=== PATIENT | female | born 1940 | race Caucasian/White ===

== ENCOUNTER → 2016-11-21 | Outpatient (CLI) | payer MEDICARE, OTHER ==
--- NOTE | 2016-11-21 15:14 | RADRPT ---
PROCEDURE: XR Femur. CLINICAL INDICATION: Left leg pain. TECHNIQUE: AP and lateral views of the left femur were performed. COMPARISON: None. FINDINGS: There is a terrance in the shaft of the femur with a screw in the neck of the femur and a locking screw d istally in the femur. Alignment of the healing fracture of the left hip intertrochanteric region is satisfactory. There is no new fracture and there is no dislocation. The soft tissues are normal. Articular surfaces are intact. There is no lytic or blastic lesion. IMPRESSION: 1. Satisfactory postoperative appearance of the left hip and femur. RPTAT: QQ .Greg Yusuf MD, MD Date Time Electronically viewed and signed by .Greg Yusuf MD, on 11/21/2016 15:13 .R/
--- NOTE | 2016-11-21 15:15 | RADRPT ---
PROCEDURE: XR Left hip and pelvis. CLINICAL INDICATION: Left hip pain and pelvic pain... TECHNIQUE: 3 views. Frontal pelvis. Frontal and lateral left hip. COMPARISON: None. FINDINGS: There is a terrance in the shaft of the left femur with a screw in the neck of the left femur and a locki ng screw distally in the left femur. Alignment of the healing fracture of the left hip intertrochan teric region is satisfactory. There is no new fracture and there is no dislocation. The right hip d emonstrates mild degenerative change with small osteophytes noted. There are degenerative changes o f the lower lumbar spine. The articular surfaces are otherwise intact. There is no lytic or blastic lesion. IMPRESSION: 1. Satisfactory postoperative appearance of the left hip. 2. Mild degenerative changes of the right hip. RPTAT: QQ .Greg Yusuf MD, MD Date Time Electronically viewed and signed by .Greg Yusuf MD, on 11/21/2016 15:14 .R/
== END | disposition home or self-care (01) ==
LOC: HKI 14:04
PROVIDERS: ATTEND Orthopaedic Surgery
DX: S72.142D Displaced intertrochanteric fracture of left femur, subsequent encounter for closed fracture with routine healing (principal)
CPT/HCPCS: 73502; 73552; G0463

== ENCOUNTER → 2016-12-16 | Outpatient (CLI) | payer MEDICARE, OTHER ==
--- NOTE | 2016-12-16 19:05 | RADRPT ---
PROCEDURE: CT left femur without IV contrast. CLINICAL INDICATION: Left hip pain TECHNIQUE: CT scan of the left femur without contrast was performed on the [employer] volumetric [address] scanner. The patient was scanned without intravenous contrast. Coronal and sagittal reformatted images were obtained from the axial source images. The CTDI vol is 23.97 mGy and the DLP is 798.47 m Gy-cm. COMPARISON: Plain films from 11/21/2016 FINDINGS: Diffuse osteopenia is seen. An intertrochanteric left hip fracture is seen. Lucency at the fractur e site is seen with sclerotic margins. An intramedullary terrance in the left femur is seen with interloc sally screw in the left hip. The orthopedic hardware appears grossly radiographically intact. No ot her fracture is seen. No dislocation is seen. Moderate joint space narrowing and osteophytosis in the left hip is seen. Degenerative changes in the pubic symphysis is seen. Mild edema in the left lateral soft tissues is seen within the subcutaneous region. No focal fluid collection or hematoma is identified. The visualized small and large bowel are grossly unremarkable. The visualized uterus and urinary bl adder is within normal limits. IMPRESSION: 1. Status post intramedullary terrance placement for an intertrochanteric left hip fracture which demons trates lucency at the fracture site with sclerotic margins which may represent a healing fracture. Correlation to the date of the fracture is recommended as well as a follow-up as clinically warrante d. 2. Moderate osteoarthritis in the left hip. RPTAT: HPNM Physician Reta Date Time Electronically viewed and signed by Physician Reta on 12/16/2016 19:04 /
== END | disposition home or self-care (01) ==
LOC: C/S 11:18
PROVIDERS: ATTEND Orthopaedic Surgery
DX: M25.552 Pain in left hip (principal); M16.12 Unilateral primary osteoarthritis, left hip
CPT/HCPCS: 73700

== ENCOUNTER → 2017-01-06 | Outpatient (CLI) | payer MEDICARE, OTHER ==
[~2017-01-06] MED LIST: LIDOCAINE 1% (STERILE-PAK) 30 ML INJ ONE; POLYMYXIN/BACITRACIN 1L IRRIG ONE; ROPIVACAINE 0.5 % 30 ML VIAL ONE
== END | disposition home or self-care (01) ==
LOC: HKI 13:52
PROVIDERS: ATTEND Orthopaedic Surgery
DX: S72.142D Displaced intertrochanteric fracture of left femur, subsequent encounter for closed fracture with routine healing (principal); X58.XXXD Exposure to other specified factors, subsequent encounter
CPT/HCPCS: G0463; J2795

== ENCOUNTER → 2017-02-03 | Outpatient (CLI) | payer MEDICARE, OTHER ==
--- NOTE | 2017-02-03 14:32 | RADRPT ---
PROCEDURE: XR Femur. CLINICAL INDICATION: Left leg pain. TECHNIQUE: AP and lateral views of the left femur were performed. COMPARISON: 11/21/2016. FINDINGS: There is a terrance in the shaft of the femur and a screw in the neck of the femur. A locking screw is p resent distally in the femur. There is satisfactory alignment of the healing fracture of the intert rochanteric region of the left hip. There is no new fracture and there is no dislocation. Articular surfaces are intact. There are mild degenerative changes of the left hip with osteophytes noted. There is no lytic or blastic lesion. IMPRESSION: 1. Satisfactory postoperative appearance of the left hip and femur. RPTAT: QQ .Greg Yusuf MD, MD Date Time Electronically viewed and signed by .Greg Yusuf MD, on 02/03/2017 14:32 .R/
--- NOTE | 2017-02-03 14:33 | RADRPT ---
PROCEDURE: XR Left Hip and pelvis. CLINICAL INDICATION: Left hip pain. Pelvic pain. TECHNIQUE: Two views. Frontal pelvis and lateral left hip. COMPARISON: 11/21/2016. FINDINGS: There is a terrance in the shaft of the femur and a screw in the neck of the femur. There is satisfact ory alignment of the healing fracture of the intertrochanteric region of the left hip. There is no new fracture and there is no dislocation. Articular surfaces are intact. There are mild degenerative changes of both hips with osteophytes not ed. There is no lytic or blastic lesion. IMPRESSION: 1. Satisfactory postoperative appearance of the left hip. 2. Mild degenerative changes of both hips. RPTAT: QQ .Greg Yusuf MD, MD Date Time Electronically viewed and signed by .Greg Yusuf MD, MD on 02/03/2017 14:33 .R/
== END | disposition home or self-care (01) ==
LOC: HKI 13:28
PROVIDERS: ATTEND Orthopaedic Surgery
DX: S72.142D Displaced intertrochanteric fracture of left femur, subsequent encounter for closed fracture with routine healing (principal); M25.752 Osteophyte, left hip; M25.751 Osteophyte, right hip
CPT/HCPCS: 73502; 73552; G0463

== ENCOUNTER → 2017-03-20 | Outpatient (CLI) | payer MEDICARE, OTHER ==
--- NOTE | 2017-03-21 12:01 | RADRPT ---
PROCEDURE: XR Left Hip and pelvis. CLINICAL INDICATION: Left hip pain. Pelvic pain. Postop. TECHNIQUE: Three views. Frontal pelvis. Frontal and lateral left hip. COMPARISON: 02/03/2017 FINDINGS: There is no acute fracture or dislocation. The soft tissues are normal. There is a left hip open reduction and internal fixation which appears satisfactory. There are mild degenerative changes of both hips with osteophytes noted. There is no lytic or blastic lesion. Sacroiliac joints are unremarkable. There are degenerative changes of the lower lumbar spine. IMPRESSION: 1. Satisfactory postoperative appearance of the left hip. 2. Mild degenerative changes of both hips. Degenerative changes of the lower lumbar spine. RPTAT: QQ .Greg Yusuf MD, MD Date Time Electronically viewed and signed by .Greg Yusuf MD, on 03/21/2017 12:01 .R/
--- NOTE | 2017-03-21 12:02 | RADRPT ---
PROCEDURE: XR Femur. CLINICAL INDICATION: Left leg pain. TECHNIQUE: AP and lateral views of the left femur were performed. COMPARISON: 02/03/2017. FINDINGS: There is a terrance in the shaft of the femur and a screw in the neck of the femur. A locking screw is pr esent distally in the femur. There is satisfactory alignment of the healing fracture of the intertro chanteric region of the left hip. There is no new fracture and there is no dislocation. Articular surfaces are intact. There are mild degenerative changes of the left hip with osteophytes noted. There is no lytic or blastic lesion. IMPRESSION: 1. Satisfactory postoperative appearance of the left hip and femur. RPTAT: QQ .Greg Yusuf MD, MD Date Time Electronically viewed and signed by .Greg Yusuf MD, on 03/21/2017 12:02 .R/
== END | disposition home or self-care (01) ==
LOC: HKI 13:30
PROVIDERS: ATTEND Orthopaedic Surgery
DX: Z47.89 Encounter for other orthopedic aftercare (principal); S72.142D Displaced intertrochanteric fracture of left femur, subsequent encounter for closed fracture with routine healing
CPT/HCPCS: 73502; 73552; G0463

== ENCOUNTER → 2017-05-26 | Outpatient (CLI) | payer MEDICARE, OTHER ==
--- NOTE | 2017-05-26 15:49 | RADRPT ---
PROCEDURE: XR Left hip and pelvis. CLINICAL INDICATION: Left hip pain and pelvic pain. Postop. TECHNIQUE: 3 views. Frontal pelvis. Frontal and lateral left hip. COMPARISON: 04/09/2017. FINDINGS: There is a left hip open reduction and internal fixation with a terrance in the shaft of the femur and a screw in the neck of the femur. Alignment is satisfactory. There are mild degenerative changes of both hips with osteophytes noted. The soft tissues are normal. There is no lytic lesion. The upper pelvis is not included on the sury ge. IMPRESSION: 1. Satisfactory postoperative appearance of the left hip. 2. Mild degenerative changes of both hips. RPTAT: QQ .Greg Yusuf MD, MD Date Time Electronically viewed and signed by .Greg Yusuf MD, on 05/26/2017 15:48 .R/
--- NOTE | 2017-05-26 15:51 | RADRPT ---
PROCEDURE: XR Femur. CLINICAL INDICATION: Left leg pain. TECHNIQUE: AP and lateral views of the left femur were performed. COMPARISON: 03/20/2017. FINDINGS: There has been open reduction and internal fixation with a terrance in the shaft of the femur, a screw in the neck of the femur, and a locking screw distally in the femur. Alignment is satisfactory. The soft tissues are normal. There are mild degenerative changes of the left hip with osteophytes noted. There is no lytic or blastic lesion. IMPRESSION: 1. Satisfactory postoperative appearance of the left femur. RPTAT: QQ .Greg Yusuf MD, Date Time Electronically viewed and signed by .Greg Yusuf MD, on 05/26/2017 15:50 .R/
== END | disposition home or self-care (01) ==
LOC: HKI 13:36
PROVIDERS: ATTEND Orthopaedic Surgery
DX: S72.142D Displaced intertrochanteric fracture of left femur, subsequent encounter for closed fracture with routine healing (principal); X58.XXXD Exposure to other specified factors, subsequent encounter
CPT/HCPCS: 73502; 73552; G0463

== ENCOUNTER → 2017-05-30 | Outpatient (CLI) | payer MEDICARE, OTHER ==
--- NOTE | 2017-05-31 10:52 | RADRPT ---
PROCEDURE: CT left hip/femur without contrast. CLINICAL INDICATION: Left hip pain TECHNIQUE: CT scan of the left hip/femur was performed on a multi -slice scanner. No IV contrast was administered. Coronal and sagittal reformatted images were obtained from the axial source imag es. The total exam DLP equals 624 mGy-cm. The CDTI volume was 12 mGy. Images were reviewed on a high -resolution PACS workstation. One or more of the following dose reduction techniques were used: Automated exposure control Adjustment of the mA and/or kV according to patient size. Use of iterative reconstruction technique. COMPARISON: 12/16/2016 CT FINDINGS: As seen on the prior study, there is a dynamic hip screw with an intramedullary terrance traversing acros s an intertrochanteric fracture of the left femur. There is increased bony bridging and decreased ceht cency at the fracture site, especially anteriorly. There is decreased lucency with some callus form ation between the posterior aspect of the fracture and hardware on axial images 29 - 35. The hardwar e is intact without evidence of a new fracture or significant loosening. There is moderate joint space narrowing of the left hip with osseous spurring similar to the prior s tudy. There is no avascular necrosis. There is osseous spurring of the pubic symphysis. There is mild to moderate fatty atrophy of the gluteal musculature similar to the prior study. Ther e is a linear focus of scarring within the subcutaneous soft tissues of the lateral hip at the level of the greater trochanter likely from prior postsurgical change. There is minimal decreased bulk o f the remaining muscles around the left hip and femur. No fluid collections or hematoma is visualize d within the hip or femur. There is no lymphadenopathy within the visualized pelvis. RPTAT: ZZ IMPRESSION: 1. Healing intertrochanteric fracture of the left femur with increased bony bridging since 12/2016 with an intact intramedullary terrance and a dynamic hip screw traversing across the fracture. No new fra cture. 2. Moderate osteoarthrosis of the left hip. .Glenda Culver MD, Date Time Electronically viewed and signed by .Glenda Culver MD, on 05/31/2017 10:52 .T/
== END | disposition home or self-care (01) ==
LOC: C/S 10:46
PROVIDERS: ATTEND Orthopaedic Surgery
DX: M25.552 Pain in left hip (principal); M16.12 Unilateral primary osteoarthritis, left hip
CPT/HCPCS: 73700

== ENCOUNTER → 2017-08-21 | Outpatient (CLI) | payer MEDICARE, OTHER ==
--- NOTE | 2017-08-21 14:39 | RADRPT ---
PROCEDURE: US carotid arteries. CLINICAL INDICATION: Dizziness. TECHNIQUE: Multiple sonographic images of the carotid arteries and vertebral arteries were obtaine d utilizing de la fuente scale, duplex, and color-flow imaging. The images were reviewed on a PACS workstati on. COMPARISON: No prior studies are available for comparison. FINDINGS: Evaluation of the right carotid bifurcation region reveals mild atherosclerotic disease. Evaluation of the left carotid bifurcation region reveals mild atherosclerotic disease. There is antegrade flow within the vertebral arteries bilaterally. RIGHT CAROTID MEASUREMENTS: Common Carotid [id number] (cm/sec) Internal Carotid Artery 53 (cm/sec) External Carotid Artery 49 (cm/sec) Vertebral Artery 22 (cm/sec) Internal Carotid/Common Carotid1.0 LEFT CAROTID MEASUREMENTS: Common Carotid [id number] (cm/sec) Internal Carotid Artery 46 (cm/sec) External Carotid Artery 48 (cm/sec) Vertebral Artery 46 (cm/sec) Internal Carotid/Common Carotid0.9 Validated velocity measurements with angiographic measurements. Velocity criteria are extrapolated f rom diameter data as defined by the Society of Radiologists in Ultrasound Consensus Conference. Radi ology 2003; 229;340-346. This study does indirectly reference the measurement of the distal ICA juan david meter as the denominator for stenosis measurement. IMPRESSION: 1. Less than 50% stenosis bilaterally in the internal carotid arteries. 2. Normal antegrade flow in the vertebral arteries bilaterally. RPTAT: QQ SRU Consensus Conference Criteria for the Diagnosis of Carotid Artery Stenosis* Degree of Stenosis, % ICA PSV, cm/sec Plaque Estimate, % ICA/CCA PSV Ratio Normal <125 None <2.0 <50 <125 <50 <2.0 50 69 125-230 >50 2.0-4.0 >70 but less than near occlusion >230 >50 <4.0 Near occlusion High, low, or undetectable Visible Variable Total occlusion Undetectable Visible, no detectable lumen Not applicable *Cartoid artery stenosis: de la fuente-scale and Doppler US diagnosis. Society of Radiologists in Ultrasound Consensus Conference. Radiology 2003; 229: 340-346 .Greg Yusuf MD, Date Time Electronically viewed and signed by .Greg Yusuf MD, on 08/21/2017 14:39 .R/
--- NOTE | 2017-08-21 18:06 | RADRPT ---
Echocardiogram Report Patient Name: ZULEIKA GAMING Gender: Female Date: 1940 Study Date: 21-Aug-2017 V/[place] Signal Officer: LISA PEÑA Location: EKG Ref. Physician: JOSÉ MIGUEL RAIN Quality: Good Procedures: Transthoracic echocardiogram with complete 2D, M-Mode, and doppler examination. Indications: Congestive Heart Failure. 2D/M Mode Doppler Measurement Value Normal Ranges Measurement Value Normal Ranges LVIDd 2D 4.2 3.5 - 5.6 cm AV Peak Nael 1.1 m/sec LVIDs 2D 2.8 2.1 - 4.1 cm AV Peak PG 5.0 mmHg FS 2D 32.9 % LVOT Peak Nael 0.8 m/sec LVPWd 2D 1.0 0.6 - 1.1 cm LVOT Peak PG 2.0 mmHg IVSd 2D 1.0 0.6 - 1.1 cm MV E Peak Nael 0.9 m/sec IVS/LVPW 2D 1.0 MV A Peak Nael 0.8 m/sec AoR Diam 2D 2.7 2.0 - 3.7 cm MV E/A 1.1 LA/Ao 2D 1 0 - 1 MV Decel Time 278 msec EDV 2D 72.0 cm3 MV E/A 1.1 ESV 2D 21.7 cm3 MR Peak PG 30.0 mmHg LA Dimen 2D 3.6 2.3 - 4.0 cm MR Peak Nael 2.7 m/sec TR Peak Nael 2.7 m/sec TR Peak PG 30.0 mmHg Findings Left Ventricle: Normal left ventricular systolic function. Normal left ventricular cavity size. Left ventricle not well visualized. Normal left ventricular wall thickness. Ejection fraction is visually estimated at 60 %. Right Ventricle: Normal right ventricular size. Normal right ventricular systolic function. Left Atrium: The left atrium is normal in size. Right Atrium: The right atrium is normal in size. Mitral Valve: Mitral valve is not well visualized. Moderate mitral annular calcification. Trace mitral regurgitation. Aortic Valve: No significant aortic stenosis or insufficiency. Aortic valve not well visualized. Aortic sclerosis without stenosis. Tricuspid Valve: Tricuspid valve not well visualized. Estimated peak PA systolic pressure 33 mmHg. There is trace to mild tricuspid regurgitation. Pulmonic Valve: Pulmonic valve not well visualized. Pericardium: Normal pericardium with no significant pericardial effusion. Aorta: Normal aortic root. IVC: Normal size and normal respiratory collapse consistent with normal right atrial pressure. Pulmonary Artery: Not well visualized. Conclusions 1.Normal left ventricular systolic function. Normal left ventricular cavity size. Left ventricle not well visualized. Normal left ventricular wall thickness. Ejection fraction is visually estimated at 60 %. 2.Mitral valve is not well visualized. Moderate mitral annular calcification. Trace mitral regurgitation. 3.No significant aortic stenosis or insufficiency. Aortic valve not well visualized. Aortic sclerosis without stenosis. 4.Estimated peak PA systolic pressure 33 mmHg. 5.very suboptimal study. Electronically Signed By: Harrison Edwards 21-Aug-2017 18:05:43 -0700 Patient Name: ZULEIKA GAMING Study Date: 21-Aug-2017 [id number]
== END | disposition home or self-care (01) ==
LOC: EKG 13:10
PROVIDERS: ATTEND Internal Medicine
DX: I63.9 Cerebral infarction, unspecified (principal)
CPT/HCPCS: 93306; 93880